=== PATIENT | female | born 1970 | race Hispanic/Latino ===

== ENCOUNTER 2019-02-01 11:35 | Inpatient (IN) | payer OTHER ==
[~2019-02-01] VITALS: Ht 152.4 cm; Wt 113.4 kg
[2019-02-01] MEDS ORDERED: ASPIRIN 81 MG CHEW TAB PO ONE (11:45)
--- NOTE | 2019-02-01 12:10 | Diagnostic Imaging Report ---
EXAMINATION: Head CT HISTORY: Headache, weakness, left side COMPARISON: None. TECHNIQUE: Multidetector axial images were obtained without contrast from the foramen magnum to the vertex . The images were reconstructed using brain and bone algorithms. Thin section brain images were reformatted into coronal and sagittal planes. Image quality: Motion/streaking artifact limits the evaluation of the skull base and posterior cranial fossa. Dose modulation, iterative reconstruction, and/or weight based adjustment of the mA/kV was utilized to reduce the radiation dose to as low as reasonably achievable. FINDINGS: Parenchyma: 1. Tiny hypodense focus in the right posterior lentiform nucleus may represent sequela from remote insult, such as ischemia in the appropriate clinical setting, correlation with past medical history advised. 2. No mass or hemorrhage. No CT evidence of acute territorial vascular insult. Extra-axial spaces:No abnormal density. No extra-axial fluid collections Brain volume: Normal for age. Ventricles: No hydrocephalus or displacement. Arteries: No density suggestive of thrombus. Dural sinuses: No abnormal density. Extra-axial spaces: No abnormal density. Foramen magnum: No mass, Chiari malformation, or basilar invagination. Sella: No obvious mass. Paranasal/mastoid sinuses: Imaged portions unremarkable. Skull/Scalp: No lytic or blastic lesions. No fractures. IMPRESSION: 1. No acute intracranial hemorrhage or CT evidence of acute territorial cortical infarct. 2. Small likely chronic lacunar infarct in the right posterior lentiform nucleus. Signed by: Dr. Mary Almonte M.D. on 02/01/2019 12:07 PM
--- NOTE | 2019-02-01 12:56 | Diagnostic Imaging Report ---
A single frontal view of the chest. HISTORY: Chest pain, possible stroke COMPARISON: None available. DISCUSSION: Portable technique, limits sensitivity of the exam. Soft tissue attenuation partially limits sensitivity of the exam. Tubes/Lines: None Lungs and pleura: Low lung volumes result in bibasilar vascular crowding, accentuation of the pulmonary interstitial markings, central pulmonary vasculature, and the cardiac silhouette. Allowing for these limitations, the findings are as follows: Mild bibasilar atelectasis. No evidence of a consolidative pneumonia or pulmonary alveolar edema. No definite pleural effusion or pneumothorax is identified. Heart and mediastinum: The cardiomediastinal silhouette appear(s) unremarkable. Bones and soft tissues: Appear unremarkable, given this limited exam. IMPRESSION: 1. Mild bibasilar atelectasis. 2. No consolidative pneumonia. Signed by: Dr. Leo Carmen D.O., M.M.M. on 02/01/2019 12:53 PM
[2019-02-01] MEDS ORDERED: HYDRALAZINE HCL 20 MG/ML VIAL IV STA (12:58)
[2019-02-01] MEDS ORDERED: SODIUM CHLORIDE 0.9% 1000ML 1,000 ML IV SCH (13:00)
[2019-02-01 13:06] LABS: BASOPHILS % 0.5 % (0.0-1.0); BILIRUBIN,URINE NEGATIVE (NEGATIVE); CLARITY,URINE SL CLOUDY (CLEAR); COLOR,URINE YELLOW (YELLOW); EOSINOPHILS # (AUTO) 0.3 (0.0-0.4); EOSINOPHILS % 3.9 % (0.0-6.0); HEMATOCRIT 48.1 % (34.2-44.1); HEMOGLOBIN 16.6 g/dL (12.0-16.0); KETONES,URINE TRACE (NEGATIVE); LEUKOCYTE ESTERASE ,URINE NEGATIVE (NEGATIVE); LYMPHOCYTES # (AUTO) 2.1 (1.0-3.2); LYMPHOCYTES % 26.3 % (18.0-39.1); MEAN CORPUSCULAR HEMOGLOBIN 29.3 pg (28-32); MEAN CORPUSCULAR HGB CONC 34.5 g/dL (31-35); MONOCYTES # (AUTO) 0.5 (0.2-0.8); MONOCYTES % 6.1 % (4.4-11.3); NEUTROPHILS % 62.8 % (38.7-80.0); NITRITE,URINE NEGATIVE (NEGATIVE); PLATELET COUNT 388 x10e3/uL (140-360); PROTEIN,URINE DIPSTICK 1+ (NEGATIVE); RED BLOOD COUNT 5.66 x10e6/uL (3.6-5.1); RED CELL DISTRIBUTION WIDTH 12.7 % (11.7-14.4); URINE UROBILINOGEN 0.2 mg/dL (0.2 - 1)
[2019-02-01 13:11] LABS: BACTERIA,URINE FEW /HPF; EPITHELIAL CELLS,URINE FEW /LPF; RBC,URINE 0-5 /HPF (0-5)
[2019-02-01 13:15] LABS: INR 0.91; PROTHROMBIN TIME 12.7 seconds (11.9-14.5)
[2019-02-01 13:16] LABS: PARTIAL THROMBOPLASTIN TIME 26.4 seconds (23.8-35.5)
[2019-02-01 13:29] LABS: ALANINE AMINOTRANSFERASE 27 IU/L (0-55); ALBUMIN 3.6 g/dL (3.5-5.0); ALBUMIN/GLOBULIN RATIO 0.9 (0.8-2.0); ALKALINE PHOSPHATASE 89 IU/L (40-150); ANION GAP 15.1 mmol/L (8-16); BLOOD UREA NITROGEN 9 mg/dL (7-26); BUN/CREATININE RATIO 12 (6-25); CALCIUM 9.2 mg/dL (8.4-10.2); CARBON DIOXIDE 23 mmol/L (22-29); CHLORIDE 103 mmol/L (98-107); CREATINE KINASE 58 IU/L (29-168); CREATININE, SERUM 0.78 mg/dL (0.57-1.11); EST GLOMERULAR FILTRATION RATE > 60 ML/MIN (60-); GLUCOSE 319 mg/dL (74-118); POTASSIUM 4.1 mmol/L (3.5-5.1); SODIUM 137 mmol/L (136-145)
[2019-02-01] MEDS ORDERED: ACETAMINOPHEN 325 MG TAB PO ONE (13:30)
--- OUTSIDE RECORDS SUMMARY | 2019-02-01 13:34 | XMS REPORT ---
Author Author [facility] Address Unknown Phone Unavailable Care Team Providers Care Linen Controller Name Role Phone DULCE POTTER Unavailable Unavailable Problems This patient has no known problems. Allergies, Adverse Reactions, Alerts This patient has no known allergies or adverse reactions. Medications This patient has no known medications. Results Test Description Test Time Test Comments Text Results Atomic Results Result Comments CHEST SINGLE (PORTABLE) 2019-02-01 12:52:00 [place] [address] Patient Name: NORMA FRAUSTO MR #: [id number] : 1970 Age/Sex: 49/F Req #: [id number] Adm Physician: Ordered by: DULCE POTTER DO Report #: [id number] Location: ER Room/Bed: Procedure: [id number] DX/CHEST SINGLE (PORTABLE) Exam Date: 02/01/19 Exam Time: 1140 REPORT STATUS: Signed A single frontal view of the chest. HISTORY: Ch est pain, possible stroke COMPARISON: None available. DISCUSSION: Portable technique, limits sensitivity of the exam. Soft tissue attenuation partially limits sensitivity of the exam. Tubes/Lines: None Lungs and pleura: Low lung volumes result in bibasilar vascular crowding, accentuation of the pulmonary interstitial markings, central pulmonary vasculature, and the cardiac silhouette. Allowing for these limitations, the findings are as follows: Mild bibasilar atelectasis. No evidence of a consolidative pneumonia or pulmonary alveolar edema. No definite pleural effusion or pneumothorax is identified. Heart and mediastinum: The cardiomediastinal silhouette appear(s) unremarkable. Bones and soft tissues: Appear unremarkable, given this limited exam. IMPRESSION: 1. Mild bibasilar atelectasis. 2. No consolidative pneumonia. Signed by: Dr. Isaiah Carmen D.O., M.M.M. on 02/01/2019 12:53 PM Dictated By: ISAIAH CARMEN DO 1253 Transcribed By: NATASHA on 02/01/19 1253 COPY TO: DULCE POTTER DO CT BRAIN WO 2019-02-01 12:03:00 [place] [address] Patient Name: NORMA FRAUSTO MR #: [id number] : 1970 Age/Sex: 49/F Req #: [id number] Adm Physician: Ordered by: DULCE POTTER DO Report #: [id number] Location: ER Room/Bed: Procedure: [id number] CT/CT BRAIN WO Exam Date: 02/01/19 Exam Time: 1140 REPORT STATUS: Signed EXAMINATION: Head CT HISTORY: Headache, weakness, left side COMPARISON: None. TECHNIQUE: Multidetector axial images were obtained without contrast from the foramen magnum to the vertex . The images were reconstructed using brain and bone algorithms. Thin section brain images were reformatted into coronal and sagittal planes. Image quality: Motion/streaking artifact limits the evaluation of the skull base and posterior cranial fossa. Dose modulation, iterative reconstruction, and/or weight based adjustment of the mA/kV was utilized to reduce the radiation dose to as low as reasonably achievable. FINDINGS: Parenchyma: 1. Tiny hypodense focus in the right posterior lentiform nucleus may represent sequela from remote insult, such as ischemia in the appropriate clinical setting, correlation with past medical history advised. 2. No mass or hemorrhage. No CT evidence of acute territorial vascular insult. Extra-axial spaces:No abnormal density. No extra-axial fluid collections Brain volume: Normal for age. Ventricles: No hydrocephalus or displacement. Arteries: No density suggestive of thrombus. Dural sinuses: No abnormal density. Extra-axial spaces: No abnormal density. Foramen magnum: No mass, Chiari malformation, or basilar invagination. Sella: No obvious mass. Paranasal/mastoid sinuses: Imaged portions unremarkable. Skull/Scalp: No lytic or blastic lesions. No fractures. IMPRESSION: 1. No acute intracranial hemorrhage or CT evidence of acute territorial cortical infarct. 2. Small likely chronic lacunar infarct in the right posterior lentiform nucleus. Signed by: Dr. Marzena Almonte M.D. on 02/01/2019 12:07 PM Dictated By: MARZENA ALMONTE MD 1200 Transcribed By: NATASHA on 02/01/19 1209 COPY TO: DULCE POTTER DO
[2019-02-01] MEDS ORDERED: MORPHINE SULFATE 5 MG/ML VIAL IV PRN (14:00)
[2019-02-01] MEDS ORDERED: ONDANSETRON HCL INJ 2MG/ML 2ML 2 MG/ML VIAL IV PRN (14:00)
[2019-02-01] MEDS ORDERED: ACETAMINOPHEN 325 MG TAB PO PRN (14:00)
[2019-02-01] MEDS ORDERED: HYDROCODONE/APAP 5MG-325MG TAB PO PRN (14:00)
--- NOTE | 2019-02-01 14:13 | NUR ---
per dr randi gieger if pt bp sys [id number]
[2019-02-01] MEDS ORDERED: MORPHINE SULFATE 2 MG/ML SYR 1ML IV PRN (14:15)
--- NOTE | 2019-02-01 14:20 | NUR ---
dr mobley at pt bedside
[2019-02-01] MEDS ORDERED: DEXTROSE 50% SYRINGE 50 ML IV PRN (14:45)
[2019-02-01] MEDS ORDERED: ASPIRIN 81 MG CHEW TAB PO STA (14:45)
[2019-02-01] MEDS: SODIUM CHLORIDE 0.9% 1000ML 1,000 ML IV SCH (14:57)
--- NOTE | 2019-02-01 15:03 | NUR ---
per radiology barium swallow study will be done tomorrow
[2019-02-01 15:16] LABS: CHOL/HDL RATIO 5.7 (3.0-3.6)
[2019-02-01] MEDS: LISINOPRIL 10 MG TAB PO SCH (16:36)
--- NOTE | 2019-02-01 19:26 | NUR ---
WALKING ROUNDS PERFORMED, RECEIVED PT LAYING SEMI FOWLERS IN BED, AAOX3, RR EVEN AND NON-LABORED, ON ROOM AIR. (L) ARM NOTED TO BE WEAK WITH (L) TONGUE DEVIATION. LEFT PT LAYING SEMI FOWLERS IN BED, BED IN LOW LOCKED POSITION, SIDE RAILS UPX2, CALL LIGHT AND PHONE WITHIN REACH.
[2019-02-01 20:15] VITALS: BP 172/89
[2019-02-01] MEDS ORDERED: ATORVASTATIN 20 MG TAB PO SCH (21:00)
[2019-02-01] MEDS ORDERED: ATORVASTATIN 40 MG TAB PO SCH (21:00)
[2019-02-01 22:30] VITALS: BP 172/89
--- NOTE | 2019-02-01 23:19 | History and Physical ---
CHIEF COMPLAINT: Left upper and lower extremity weakness that began yesterday afternoon with slurred speech. 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 The patient states that she was at home and suddenly noticed that she had difficulty grabbing things with her left arm and hand. Also noticed that she had difficulty ambulating with her left leg as well. She also noticed slurred speech, but no facial drooping. No blurry vision noted. She reports right side upper and lower extremity are normal with no issues. She does endorse that she has been very noncompliant, was seen a primary care physician due to insurance issues. She also reports that her blood pressure is extremely elevated due to not having any medications at home. The patient was seen and evaluated at bedside on the medical floor in the ER. She is currently doing well with no other issues at this time. REVIEW OF SYSTEMS: 1. She has slurred speech, left upper and lower extremity weakness. 2. Pertinent negatives: Denies any chest pain, palpitation, nausea, vomiting, diarrhea, dysuria, hematuria, frequency, urgency, lightheadedness, dizziness, abdominal pain, headache, shortness of breath, cough, congestion, fever, or any other complaints. The rest of the 14-point review of systems have been reviewed with the patient and are negative. ALLERGIES: NO KNOWN DRUG ALLERGIES. HOME MEDICATIONS: None recorded at this time. PAST MEDICAL HISTORY: Type 2 diabetes, hypertension, morbidly obese. PAST SURGICAL HISTORY: Reports none. FAMILY HISTORY: Hypertension, diabetes. SOCIAL HISTORY: No drugs. No alcohol. Does not smoke. Good social support. She is . PHYSICAL EXAMINATION: VITAL SIGNS: Temperature is 99.4, pulse is 110, respiratory rate is 16, blood pressure is 139/97, pulse ox 99% on room air. When she came in, highest pressure was 127/103. GENERAL: Not in acute distress. Alert and oriented x3. Cooperative on examination. HEENT: Head is normocephalic, atraumatic. Eyes; pupils equal, round, and reactive to light bilaterally. Extraocular movements are intact bilaterally. NECK: Supple. Good range of motion. THROAT: No evidence of erythema or exudates in the posterior pharynx. Has poor dentition. PULMONARY: Clear to auscultation bilaterally. No wheezing, rales, or rhonchi. No crackles appreciated. CARDIOVASCULAR: Positive S1, S2. No murmurs, rubs, or gallops appreciated. ABDOMEN: Soft, nondistended, nontender to palpation. Bowel sounds present. NEUROLOGICAL: Has left upper and lower extremity weakness, difficulty grabbing things with the left hand. Has slurred speech on exam. No facial drooping. Right upper and lower extremities, strength is within normal range. SKIN: Intact. Warm to touch. Good cap refill. PSYCHIATRIC: Normal affect and mood. EXTREMITIES: No edema, good range of motion throughout. LAB FINDINGS: Show white count 7.9, hemoglobin 16.6, hematocrit is 48, platelets of 388, coagulation PT 12, INR 0.91, PTT 26. Chemistry; sodium 137, potassium 4.1, chloride 103, bicarb 23, anion gap of 15, BUN 9, creatinine 0.78. Glucose was 319, calcium 9.2, , AST 17, ALT 27, alk phos 89, CK 58. Troponins are negative. BNP 23, total protein 7.7, albumin 3.6. Urinalysis 6-10 wbcs. Leukocyte esterase negative, nitrite negative. IMAGING STUDIES: Chest x-ray, mild bibasilar atelectasis. No consolidative CT of the brain, no acute intracranial hemorrhage or CT evidence of acute nucleus. IMPRESSION: 1. Concern for acute CVA with left upper or lower extremity weakness. 2. Type 2 diabetes, uncontrolled. 3. Hypertension, uncontrolled. 4. Medical noncompliance. 5. Morbidly obese. PLAN: At this time, aspirin was given in the ER. We will continue with aspirin 81 mg daily. Start on Lipitor 40 mg at bedtime. Get an MRI of the brain, carotid ultrasound, 2D echo, and Neurology consultation. PT/OT evaluation. Get an A1c, lipid panel as well. Monitor blood pressure very closely. Add on low-dose losartan 50 mg daily, add insulin sliding scale as well for diabetes. Diabetic diet. SCDs for DVT prophylaxis for now until MRI of the brain is back. Continue with PT and OT. I discussed the plan of care with the patient and the patient's at bedside including the nursing staff present. She verbalized understanding and agrees to plan of care. MD CLAIRE Kat/MODL /[id number]
[2019-02-01] MEDS ORDERED: BENAZEPRIL-HCT1 EAC3 PO (23:56)
[2019-02-01] MEDS ORDERED: GLIPIZIDE5 MG PO (23:56)
[2019-02-01] MEDS ORDERED: METFORMIN HCL500 MG PO (23:56)
[2019-02-02] VITALS (8 sets, daily range): BP systolic 144–195; BP diastolic 72–111
[2019-02-02] MEDS: SODIUM CHLORIDE 0.9% 1000ML 1,000 ML IV SCH ×2 (03:41→17:49)
[2019-02-02 05:56] LABS: BASOPHILS % 0.3 % (0.0-1.0); EOSINOPHILS # (AUTO) 0.3 (0.0-0.4); EOSINOPHILS % 3.4 % (0.0-6.0); HEMATOCRIT 43.9 % (34.2-44.1); HEMOGLOBIN 14.7 g/dL (12.0-16.0); LYMPHOCYTES # (AUTO) 3.6 (1.0-3.2); LYMPHOCYTES % 40.6 % (18.0-39.1); MEAN CORPUSCULAR HEMOGLOBIN 29.1 pg (28-32); MEAN CORPUSCULAR HGB CONC 33.5 g/dL (31-35); MEAN CORPUSCULAR VOLUME 86.9 fL (81-99); MONOCYTES # (AUTO) 0.7 (0.2-0.8); MONOCYTES % 8.2 % (4.4-11.3); NEUTROPHILS # (AUTO) 4.1 (2.1-6.9); NEUTROPHILS % 46.7 % (38.7-80.0); PLATELET COUNT 337 x10e3/uL (140-360); RED BLOOD COUNT 5.05 x10e6/uL (3.6-5.1)
[2019-02-02] MEDS ORDERED: INFLUENZA VIRUS VAC SPLIT INJ 0.5 ML SYR IM SCH (06:00)
[2019-02-02] MEDS ORDERED: PNEUMOCOCCAL VACCINE POLYVALENT 23 MCG/0.5 ML VIAL IM SCH (06:00)
[2019-02-02 06:17] LABS: ANION GAP 12.5 mmol/L (8-16); BLOOD UREA NITROGEN 10 mg/dL (7-26); BUN/CREATININE RATIO 14 (6-25); CALCIUM 8.5 mg/dL (8.4-10.2); CARBON DIOXIDE 24 mmol/L (22-29); CHLORIDE 101 mmol/L (98-107); CHOL/HDL RATIO 6.1 (3.0-3.6); CHOLESTEROL 200 MD/DL (0-199); CREATININE, SERUM 0.71 mg/dL (0.57-1.11); EST GLOMERULAR FILTRATION RATE > 60 ML/MIN (60-); GLUCOSE 239 mg/dL (74-118); HDL CHOLESTEROL 33 MG/DL (40-60); LDL CHOLESTEROL 143 MG/DL (60-130); POTASSIUM 3.5 mmol/L (3.5-5.1); SODIUM 134 mmol/L (136-145); TRIGLYCERIDES 118 MG/DL (0-149)
[2019-02-02] MEDS ORDERED: DEXTROSE 50% SYRINGE 50 ML IV PRN (06:30)
[2019-02-02] MEDS: INSULIN REGULAR, HUMAN 100 UNIT/1 ML 3ML VIAL SQ SCH ×4 (07:56→20:39)
[2019-02-02] MEDS: LISINOPRIL 10 MG TAB PO SCH ×2 (07:56→18:07)
[2019-02-02] MEDS: ASPIRIN 81 MG CHEW TAB PO SCH (07:56)
[2019-02-02] MEDS ORDERED: ASPIRIN 325 MG TAB PO SCH (09:00)
--- NOTE | 2019-02-02 10:00 | NUR ---
DC INSTRUCTIONS AND PRESCRIPTIONS GIVEN PT VERBALIZED,UNDERSTANDING IV DC PRESSURE DRESSING APPLIED AND TAPED PT IS NOW OFF UNIT TO HOME Addendum: 02/02/19 at 1003 by Angie Traylor RN WRONG PT CHARTING
--- NOTE | 2019-02-02 12:31 | Progress Note ---
DATE: 02/02/2019 Medicine Progress Note SUBJECTIVE: The patient states that her slurred speech has improved. She passed her speech therapy evaluation. She is able to eat regular diet. She reports feeling a little better today, but still kind of wobbly when she is ambulating. PHYSICAL EXAMINATION: VITAL SIGNS: Temperature is 97.6, pulse 80, respiratory rate is 20, blood pressure is 144/91, and pulse ox 97% on room air. GENERAL: Not in acute distress. Alert and oriented x3. Cooperative on examination. HEENT: Head; normocephalic, atraumatic. Eyes; pupils are equal, round, and reactive to light bilaterally. Extraocular movements intact bilaterally. Throat; no evidence of erythema or exudates in the posterior pharynx. Has poor dentition. NECK: Supple. Good range of motion. PULMONARY: Clear to auscultation bilaterally. No wheezing, no rales, no rhonchi, no crackles appreciated. CARDIOVASCULAR: Positive S1 and S2. No murmurs, rubs, or gallops appreciated. ABDOMEN: Soft, nondistended, and nontender to palpation. Bowel sounds present. MUSCULOSKELETAL: We will defer to Neurology. NEUROLOGIC: She has weakness in the left upper and lower extremity, difficulty grabbing with the left hand, but she reports much improved compared to yesterday. Her slurred speech improved. We will defer the exam to Neurology. SKIN: Intact. Warm to touch. Good cap refill. PSYCHIATRIC: Normal affect and mood. EXTREMITIES: No edema. Good range of motion throughout. LABORATORY DATA: Labs show white count 8.7, hemoglobin 14.7, hematocrit is 44, and platelets of 337. Chemistries reviewed show sodium 134, potassium 3.5, chloride 101, bicarb 24, anion gap of 12, BUN is 10, creatinine is 0.71, glucose 239. A1c is 11.7, calcium 8.5, albumin 3.6, LDL was 143. MICROBIOLOGY: None. IMAGING DATA: Carotid Doppler ultrasound pending. MRI of the brain pending. A 2D echo pending. IMPRESSION: 1. Acute cerebrovascular accident with left upper and lower extremity weakness. 2. Type 2 diabetes, uncontrolled. 3. Hypertension. 4. Morbid obesity. 5. Medical noncompliance. PLAN: At this time, continue with aspirin. Also, continue with Lipitor due to LDL being very high. We are still pending MRI of the brain, carotid ultrasound, and 2D echo. Neurology is consulted, who will come and evaluate. PT/OT has been consulted in hopes to determine if the patient needs inpatient rehab versus skilled versus some other form of rehab. I will go ahead and start her on insulin for her diabetes, as her A1c is significantly high. We will go ahead and discontinue oral anti-glycemics, add her on Levemir 10 units at bedtime with premeal and NovoLog at 5 units as well as sliding scale. We will continue to monitor her very closely. Her blood pressure is stable. Discussed plan of care with the patient and nursing staff. MD CLAIRE Kat/KEVEN /[id number]
--- NOTE | 2019-02-02 14:14 | NUR ---
SPOKE WITH MD BEYER REGARDING HIGH BP NEW ORDERS RECEIVED
[2019-02-02] MEDS ORDERED: LOSARTAN POTASSIUM 100 MG TAB PO SCH (14:15)
--- NOTE | 2019-02-02 15:17 | Diagnostic Imaging Report ---
History: CVA Comparison studies: CT head 02/01/2019 Technique: Sagittal T2; axial DWI, FLAIR, MPGR, T1, Coronal FLAIR. Intravenous contrast: None Findings: Scalp: Normal in signal . No masses . Bone marrow: Normal in signal intensity. Extra-axial: No masses, no fluid collections. Brain sulci: Appropriate for age. Ventricles: Normal in size . No hydrocephalus . Parenchyma: Right central leticia restricted diffusion with associated T2/FLAIR hyperintensity measuring approximately 1.0 cm in transverse diameter. Small T-2/flair hyperintensities of the periventricular and deep white matter. Small chronic lacunar infarct at the right posterior lentiform nucleus. No masses or hemorrhage. Suprasellar region: No abnormalities. Craniocervical junction: No abnormalities. Patent foramen magnum. No Chiari one malformation. Vessels: Normal flow-voids in the arteries and sinuses. IMPRESSION: 1. Right central leticia acute infarct. No intracranial hemorrhage. 2. Mild chronic microvascular ischemic changes of the white matter The above finding was reported and acknowledged by Dr. Rdz at 3:34 PM 02/02/2019 Signed by: DR Black Sanchez M.D. on 02/02/2019 3:26 PM
[2019-02-02] MEDS: INSULIN LISPRO 100 UNIT/1 ML 3ML VIAL SQ SCH (17:22)
[2019-02-02] MEDS: ENOXAPARIN SOD INJ 40 MG/0.4 ML SYR SC SCH (20:29)
[2019-02-02] MEDS: ATORVASTATIN 40 MG TAB PO SCH (20:32)
[2019-02-02] MEDS: INSULIN GLARGINE 100 UNITS/ML VIAL SQ SCH (20:39)
[2019-02-02] MEDS ORDERED: LISINOPRIL 10 MG TAB PO ONE (20:45)
--- NOTE | 2019-02-02 20:46 | NUR ---
CALLED AND SPOKE WITH DR BEYER NOTIFIED PT'S ELEVATED BLOOD PRESSURE,NEW ORDERS RECEIVED AND ENTERED.
[2019-02-03] VITALS (9 sets, daily range): BP systolic 133–173; BP diastolic 65–93
--- NOTE | 2019-02-03 02:40 | Consultation ---
DATE OF CONSULTATION: 02/02/2019 Neurology Consult Note HISTORY OF PRESENT ILLNESS: Ms. Du is a 49-year-old right-hand dominant woman with past medical history significant for hypertension, diabetes mellitus type 2, and morbid obesity (not compliant with treatment), admitted to [facility] on February 01, 2019, with symptoms suspicious for a stroke. On January 31, 2019, between 1300 and 1400, Ms. Du experienced the sudden onset of dysarthria and left hemiparesis affecting the face, arm, and leg. Ms. Du does not report other symptoms associated with the dysarthria and left hemiparesis. Specifically, she does not report a visual field cut or other disturbance, aphasia, hemihypesthesia, poor balance, impairment of gait, dizziness, confusion, or headache. Over the next 24 hours (approximately), Ms. Du's neurological deficits slightly worsened. Therefore, she presented to the emergency center at [facility] between 0930 and 1030 on February 01, 2019, for further evaluation of her symptoms. Upon arrival in the emergency center, the patient was afebrile with a blood pressure of 187/86 mmHg and a pulse of 114 beats per minute. Her neurological examination was significant for mild left hemiparesis, with pronator drift and cerebellar dysfunction. While in the emergency center, a CT of the brain without contrast was performed. This study did not reveal evidence of recent large territorial ischemia or hemorrhage. Ms. Du was subsequently admitted to [facility] for further evaluation and treatment of her symptoms. Ms. Du does not take an antiplatelet or anticoagulant medication on a routine basis at home. Ms. Du reports taking her antihypertensive and oral hypoglycemic medicines inconsistently. REVIEW OF SYSTEMS: Nasal congestion, dysarthria, left facial weakness, weakness of the left arm and leg. Otherwise, a 12-point review of systems is negative. PAST MEDICAL HISTORY: Hypertension, diabetes mellitus type 2, morbid obesity (not compliant with treatment). PAST SURGICAL HISTORY: D and C in 2003, section in 2004. PAST HOSPITALIZATIONS: Surgeries/procedures as listed. FAMILY MEDICAL HISTORY: Hypertension, diabetes mellitus, and coronary artery disease in multiple paternal relatives. Hypertension in multiple maternal relatives. SOCIAL HISTORY: Ms. Du is . 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 Ms. Du does not report current or prior tobacco, alcohol, or recreational drug use. HOME MEDICATIONS: Benazepril/hydrochlorothiazide 20-25 mg one tablet by mouth daily, metformin 500 mg by mouth twice daily, and glipizide 5 mg by mouth twice daily. HOSPITAL MEDICATIONS: Acetaminophen, Lipitor, hydrocodone/acetaminophen, influenza virus vaccine, insulin glargine, Humalog, Humulin R, lisinopril, morphine sulfate, Zofran, and pneumococcal polyvalent vaccine. ALLERGIES: NO KNOWN DRUG ALLERGIES. NO KNOWN FOOD ALLERGIES. NO KNOWN ALLERGIES TO LATEX. NO KNOWN ALLERGIES TO IODINE OR OTHER CONTRAST MATERIALS. PHYSICAL EXAMINATION: VITAL SIGNS: Height 60 inches, weight 250 pounds, BMI 48.8 kg/m2, blood pressure 165/74 mmHg, pulse 98 beats per minute, respiratory rate 20 breaths per minute, and oxygen saturation 98% on room air. GENERAL: The patient is awake and alert, does not appear distressed. Morbidly obese. HEENT: Normocephalic, atraumatic. Pupils are equal, round, and reactive to light. Moist mucous membranes. NECK: Supple. No appreciable thyromegaly. No appreciable carotid bruits. CARDIOVASCULAR: S1, S2, regular rate and rhythm. No murmurs, rubs, or gallops. RESPIRATORY: Clear to auscultation bilaterally. No wheezes, rhonchi, or rales. EXTREMITIES: The skin is warm and dry. No clubbing, cyanosis, or edema. The posterior tibial and dorsalis pedis pulses are 2+ and symmetric. SKIN: No rashes or lesions. NEUROLOGIC: Memory/Attention: The patient is awake and alert, oriented to person, place, time, and situation. Cranial Nerves: Cranial nerve I - not tested. Cranial nerve II, III, IV, and - pupils are equal and round, react briskly to light (from 4 mm to 2 mm). Extraocular movements intact. No nystagmus. Cranial nerve V - sensation to light touch and pinprick is intact in the bilateral V1 through V3 distributions. Strength in the temporalis and masseter muscles is within normal limits. Cranial nerve VII - the face is asymmetric on the left as are all facial movements. Mild left central facial weakness is appreciated. Cranial nerve VIII - hearing is intact to finger rub bilaterally. Cranial nerve IX, X - the soft palate elevates equally and symmetrically. Cranial nerve XI - normal strength of the bilateral sternocleidomastoid and trapezius muscles. Cranial nerve XII - the tongue protrudes slightly to the left, but moves symmetrically from [id number]. Strength: Bulk is normal. Strength is 5/5 in the right deltoid, triceps, biceps, brachioradialis, wrist flexors and extensors, finger flexors and extensors, intrinsic hand muscles, hip flexors, knee flexors and extensors, ankle dorsiflexion and plantar flexion, and intrinsic foot muscles. Tone is normal in the right arm and right leg. Strength is 4-/5 in the left arm flexors and 3+/5 in the left arm extensors. Strength is 4/5 in the left leg flexors and 4+/5 in the left leg extensors. Tone is mildly decreased in the left arm and left leg. DTRs: Deep tendon reflexes are 2+ at the right triceps, biceps, brachioradialis, and patella. Deep tendon reflexes are 3+ at the left triceps, biceps, brachioradialis, and patella. Deep tendon reflexes are trace and symmetric at the Achilles. Plantar responses are flexor on the right and extensor on the left. Sensation: Sensation is intact to light touch and pinprick in both arms and both legs. Cerebellar: [id number] and heel-matias movements are impaired on the left, but within the bounds of paresis. Gait: Deferred. Speech: Spontaneous speech is mildly dysarthric without aphasia. Repetition is intact. Involuntary movements: None. Pronator Drift: Positive in the left arm and left leg. LABORATORY DATA: The most recent basic metabolic panel is significant for an elevated serum glucose of 239. A liver function panel collected on February 01, 2019, was unremarkable. Cardiac enzymes are negative x1. B-natriuretic peptide 23.1. Total cholesterol 235, triglycerides 126, LDL cholesterol 169, HDL cholesterol 41. Hemoglobin A1c 11.7. The CBC with differential and platelets is unremarkable. The coagulation profile is within normal limits. Urinalysis reveals slightly cloudy urine with 1+ protein, trace ketones, 6-10 white blood cells, few urine bacteria, and few urine epithelial cells. DIAGNOSTIC STUDIES: Electrocardiogram 02/01/2019: Sinus tachycardia at 107 beats per minute. Chest x-ray 02/01/2019: Mild bibasilar atelectasis. No consolidative pneumonia. CT of the brain without contrast 02/01/2019: On my review, there is no evidence of recent large territorial ischemia, hemorrhage, mass, or mass effect. A chronic lacunar infarct is seen in the right posterior lentiform nucleus. Cerebral volumes are appropriate for age. There are findings compatible with mild chronic small- vessel ischemic disease. Echocardiogram 02/02/2019: Ejection fraction 55%. No significant valvular abnormalities are noted. Bilateral carotid artery ultrasound with Doppler 02/02/2019: There is no atherosclerosis in either carotid artery system. Flow is antegrade in the bilateral vertebral arteries. MRI of the brain on 02/02/2019: There is an acute ischemic stroke in the right central leticia. A remote lacunar infarct is seen in the right posterior lentiform nucleus. Cerebral volumes are appropriate for age. There are scattered T2/FLAIR hyperintense foci throughout the supratentorial white matter compatible with mild chronic small vessel ischemic disease. ASSESSMENT AND PLAN: Ms. Du is a 49-year-old right-hand dominant woman with multiple vascular risk factors, not compliant with treatment, admitted to [facility] on February 01, 2019, with a right pontine stroke with residual dysarthria and left hemiparesis. On neurological examination, the patient has mild left hemiparesis affecting the face, arm, and leg, impaired cerebellar function of the left arm and left leg within the bounds of paresis, and mild dysarthria. The patient's laboratory data and other diagnostic studies have been reviewed and are documented above. Ms. Du has completed stroke evaluation. RECOMMENDATIONS: Are as follows: 1. Treatment with aspirin 81 mg by mouth daily for stroke prophylaxis will be continued. 2. The patient is 48 hours status post stroke. Her blood pressure may be gradually normalized. The patient's goal blood pressure is less than 140/90 mmHg within the next 1-2 days. 3. The patient's goal total cholesterol is less than 200 with an LDL of less than 70. Treatment with atorvastatin will be continued, but the dose will be increased to 80 mg by mouth at bedtime daily. Recheck a lipid panel in 8 weeks. 4. The patient's goal hemoglobin A1c is less than 7.0. Ms. Du's hemoglobin A1c is 11.7. Continue treatment with sliding scale insulin per unit protocol. While hospitalized, tight glycemic control is recommended. Defer treatment to the primary and other services following the patient. 5. Ms. Du has been evaluated by Speech and Physical therapies. Speech therapy recommended a regular diet with thin liquids. Physical therapy is recommending inpatient rehabilitation. A case management consult has been placed. 6. GI prophylaxis with Pepcid 20 mg by mouth twice daily with meals. DVT prophylaxis with Lovenox 40 mg subcutaneously daily. 7. Defer treatment of the remaining medical comorbidities to the primary and other services following the patient. 8. Anticipated disposition: Inpatient rehabilitation within 48 to 72 hours. Thank you for this consultation. I will continue to follow the patient while she remains in the hospital. TIME SPENT: 50 minutes. Mariluz Ayala MD CP/KEVEN /[id number] MTDD
[2019-02-03] MEDS: SODIUM CHLORIDE 0.9% 1000ML 1,000 ML IV SCH (06:45)
--- NOTE | 2019-02-03 06:58 | NUR ---
REPORT GIVEN TO ONCOMING NURSE.WALKING ROUNDS MADE.PT RESTING IN BED WITH NO S/S OF DISTRESS.
[2019-02-03] MEDS: FAMOTIDINE 20 MG TAB PO SCH ×2 (08:31→16:39)
[2019-02-03] MEDS: ASPIRIN 81 MG CHEW TAB PO SCH (08:32)
[2019-02-03] MEDS: LISINOPRIL 20 MG TAB PO SCH ×2 (08:32→16:39)
[2019-02-03] MEDS: INSULIN REGULAR, HUMAN 100 UNIT/1 ML 3ML VIAL SQ SCH ×4 (08:35→19:55)
[2019-02-03] MEDS: INSULIN LISPRO 100 UNIT/1 ML 3ML VIAL SQ SCH ×3 (08:35→16:40)
[2019-02-03] MEDS ORDERED: LISINOPRIL 10 MG TAB PO SCH (09:00)
--- NOTE | 2019-02-03 09:07 | NUR ---
SPOKE WITH MD CARR REGARDING NEW CONSULT. NOW AWARE
--- NOTE | 2019-02-03 09:40 | NUR ---
ST Note: Attempted to see pt for f/u after bedside swallow eval. pt in restroom. will return later time permitting.
--- NOTE | 2019-02-03 11:09 | NUR ---
ORDERS REC'D FOR ACUTE REHAB EVAL CHOICE LETTER SIGNED FOR [facility] BY PT CHOICE LETTER ON CHART MOT INITIATED AND PLACED IN PACKET AT DESK DR CARR CONSULTED NOTIFIED MONA ALMARAZ WITH [facility] OF CONSULT CLINICALS FAXED TO [phone] CONFIRMATION REC'D PLAN: TRANSFER TO [facility] WHEN APPROVED BY INSURANCE
[2019-02-03] MEDS ORDERED: ONDANSETRON HCL 4 MG ORAL DISINTEGRATING TAB PO PRN (12:30)
[2019-02-03] MEDS: CYCLOBENZAPRINE HCL 10 MG TAB PO PRN ×2 (12:47→21:36)
--- NOTE | 2019-02-03 14:40 | NUR ---
Visit made by the Spiritual Care Department Pastoral Visitor, Jenniffer Arrington. PV provided pastoral presence, prayer, hospitality, and supportive listening. Pastoral Visitor informed pt/family of the scope of [facility] and availability. TATY GUDINO Ux Specialist Spiritual Care Department O: [phone] Pager: [phone] ([phone] number calling from)
--- NOTE | 2019-02-03 15:34 | Progress Note ---
DATE: 02/03/2019 Medicine Progress Note SUBJECTIVE: The patient reportedly states she is feeling a little better. She is working with physical therapy. We are work on inpatient rehab for the patient. PHYSICAL EXAMINATION: VITAL SIGNS: Temperature is 98.7, pulse 80, respiratory rate is 20, blood pressure 140/91, and pulse ox 95% on room air. GENERAL: Not in acute distress. Alert and oriented x3. Cooperative on examination. HEENT: Head; normocephalic, atraumatic. Eyes; pupils are equal, round, and reactive to light bilaterally. Extraocular movements are intact bilaterally. Throat; no evidence of erythema or exudates in the posterior pharynx. Has poor dentition. NECK: Supple. Good range of motion. PULMONARY: Clear to auscultation bilaterally. No wheezing, no rales, no rhonchi, no crackles appreciated. CARDIOVASCULAR: Positive S1 and S2. No murmurs, rubs, or gallops appreciated. ABDOMEN: Soft, nondistended, and nontender to palpation. Bowel sounds present. MUSCULOSKELETAL: Strength is 5/5 throughout. No evidence of any muscle deficits on examination. No weakness appreciated. Please defer to Neurology. NEUROLOGIC: Cranial nerve 2 through 12 grossly intact. No evidence of any neurological deficits on exam. Please defer to Neurology. SKIN: Intact. Warm to touch. Good cap refill. PSYCHIATRIC: Normal affect and mood. EXTREMITIES: No edema. Good range of motion throughout. LABORATORY DATA: Lab findings show white count of 8.7, hemoglobin 14.2, hematocrit is 43, platelets of 337. Chemistries are stable. MICROBIOLOGY: None. IMAGING DATA: MRI of the brain showed evidence of a right central leticia acute infarct. No intracranial hemorrhage. There is no evidence of any hemodynamically significant stenosis in the left or right internal carotid arteries. A 2D echo still pending final results. IMPRESSION: 1. Acute cerebrovascular accident with right pontine infarct. 2. Type 2 diabetes, uncontrolled. 3. Hypertension. 4. Morbid obesity. 5. Medical noncompliance. PLAN: At this time, she reports moving her left upper and lower extremity, much improved, but has some spasms which I will go ahead and add Flexeril p.r.n. MRI of the brain already noted as well as carotid ultrasound. Still waiting on a 2D echo results as well. Neurology evaluated the patient. We also consulted with Physical Medicine Rehab, Dr. Carlos, to come evaluate her for inpatient rehab. I feel like the patient will benefit truly from inpatient rehab considering her age and debilitation that occurred with this particular stroke. At this time, we will continue with same plan of care and monitor very closely. We will continue with Levemir and premeal insulin as well. Her glucose levels are better controlled at 148. MD CLAIRE Kat/KEVEN /[id number]
[2019-02-03] MEDS: ENOXAPARIN SOD INJ 40 MG/0.4 ML SYR SC SCH (16:39)
--- NOTE | 2019-02-03 19:00 | NUR ---
RECEIVED PATIENT IN BEDSIDE REPORT. PATIENT RESTING AT THIS TIME. NO PAIN REPORTED. NO S&S OF DISTRESS NOTED. L FA 20G RUNNING NS @ 75 ML/HR, ASYMPTOMATIC, INTACT, AND PATENT. BED LOCKED IN LOWEST POSITION, SIDE RAILS UPX2, CALL LIGHT IN REACH.
--- NOTE | 2019-02-03 20:01 | Consultation ---
DATE OF CONSULTATION: 02/03/2019 I would like to thank Dr. Rdz for asking me see Ms. Du in consultation. REASON FOR CONSULTATION: 1. Status post right pontine stroke with left-sided hemiparesis, upper extremity more affected than lower extremity. 2. Obesity. 3. Diabetes. 4. Hypertension. 5. Noncompliance with medications. HISTORY: A 49-year-old Latin female, who is right-hand dominant, who back in January 31, symptoms associated with dysarthria and left-sided hemiparesis. The patient over the next 24 hours started to have some slightly worsening symptoms and then decided to come to the emergency room here at [facility] The patient had hypertension and was tachycardic at that time, CT of the brain was negative. However, MRI done later showed right central pontine infarct as well as mild chronic microvascular ischemic changes of the white matter, was seen by Dr. Mariluz Ayala, and workup was initiated and has since been completed, she is now up to the point where she could benefit from being evaluated for inpatient rehab. PAST MEDICAL HISTORY: Hypertension, diabetes, morbid obesity. She does not have a physician and is basically not too compliant with her medications. PAST SURGICAL HISTORY: Include D and C in 2003, in 2004. FAMILY HISTORY: Hypertension, diabetes, coronary artery disease run in the family. SOCIAL HISTORY: Lives with her family in one-story home, was otherwise independent. Works as a computer aided design technician. Denies a walker or cane. One step to get into the house. ALLERGIES: NO KNOWN DRUG ALLERGIES OR FOOD ALLERGIES. HABITS: Denies. REVIEW OF SYSTEMS: 11-point review of systems as the patient is essentially negative except for the above findings. LABORATORY DATA: The patient had a white cell count of 8.7, hemoglobin of 14.7, hematocrit 43.9, and platelets of 337. INR 0.91. UA; essentially negative for urinary tract infection. Rehab linder, the patient is ambulatory, does have impaired gait and mobility. However, did walk 150 feet, requiring some assistance. PHYSICAL EXAMINATION: GENERAL: The patient is awake, alert, and oriented x3. 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 Eyes; gaze conjugate, extraocular muscles are intact, no visual field deficits at this time. NEUROLOGIC: Sensory linder; denies any numbness or tingling in the hands, feet, or face. Manual muscle testing; 5/5 strength in the right arm and right leg throughout. In left upper extremity, she has some shoulder shrug, elbow flexion is 3+/5 strength as a synergistic pattern. She has 1/5 strength with wrist flexion extension, 0/5 strength with finger movement. In the left lower extremity, hip flexion extension was 3-/5 strength within the sitting position, knee flexion extension is 3-/5 strength in ankle dorsiflexion, plantar flexion 0/5 strength. Patellar DTRs are 2+/4+ on the right and 1+/4+ on the left. IMPRESSION: 1. Status post right pontine cerebrovascular accident with left-sided hemiparesis, upper extremity more affected than lower extremity. 2. Diabetes. 3. Hypertension. 4. Morbid obesity. PLAN: The patient is definitely a good benefit from multidisciplinary inpatient rehab program, consisting of PT, OT, nursing, and speech working in coordinate fashion to optimize her functional level. I have also spoken with the patient at length, will need to have a primary care physician, who can help her maintain her medications and her overall health, so that she has decreased risk for stroke in the future. Discussed with patient and family at length checking with insurance to see of they will allow her to come in inpatient rehab. Thank you once again for allowing me to participate in the care of this pleasant patient. Thomas Carlos DO RPL/MODL /[id number]
[2019-02-03] MEDS: ATORVASTATIN 40 MG TAB PO SCH (20:41)
[2019-02-03] MEDS: INSULIN GLARGINE 100 UNITS/ML VIAL SQ SCH (20:57)
--- NOTE | 2019-02-03 21:44 | NUR ---
PATIENT REQUESTING SOMETHING TO HELP HER SLEEP, SPOKE WITH MD BEYER, NEW ORDERS RECEIVED.
[2019-02-03] MEDS: MELATONIN 5 MG TABLET PO PRN (22:04)
[2019-02-04] VITALS (7 sets, daily range): BP systolic 141–185; BP diastolic 76–91
[2019-02-04] MEDS: SODIUM CHLORIDE 0.9% 1000ML 1,000 ML IV SCH ×2 (00:39→09:25)
--- NOTE | 2019-02-04 07:22 | NUR ---
Received patient lying in bed with eyes open. Respiration even and unlabored without SOB. Call light in reach.
[2019-02-04] MEDS: INSULIN REGULAR, HUMAN 100 UNIT/1 ML 3ML VIAL SQ SCH ×4 (07:30→20:59)
[2019-02-04] MEDS: ASPIRIN 81 MG CHEW TAB PO SCH (08:20)
[2019-02-04] MEDS: FAMOTIDINE 20 MG TAB PO SCH ×2 (08:20→16:19)
[2019-02-04] MEDS: LISINOPRIL 20 MG TAB PO SCH ×2 (08:21→16:19)
[2019-02-04] MEDS: INSULIN LISPRO 100 UNIT/1 ML 3ML VIAL SQ SCH ×3 (09:42→18:18)
--- NOTE | 2019-02-04 12:30 | NUR ---
Nurse called to room and noticed patient on her knees with tech at her side. Tech informed nurse that her left leg gave out and patient was lowered down. Patient was stable and fine. No s/s of distress noted. Patient assisted back up to her feet and assisted back to her bed. Bedside commode to bedside. Call placed to therapy for the walker and left arm support d/t flaccidity. Unable to find the arm support. Will keep gait belt at bedside and patient to be assisted by 2 staff members.
--- NOTE | 2019-02-04 14:35 | Progress Note ---
DATE: Medicine Progress Note SUBJECTIVE: The patient reports doing much better today. Has no other issues. She does feel like she is more sleepy today than usual. She did get some melatonin last night for sleep. PHYSICAL EXAMINATION: VITAL SIGNS: Temperature is 96.5, pulse 74, respiratory rate is 20, last blood pressure early this morning 185/85, but she has been stable before. She did receive her lisinopril, but the new vital signs are not available at this time after the lisinopril. GENERAL: Not in acute distress. Alert and oriented x3. Cooperative on examination. HEENT: Head; normocephalic, atraumatic. Eyes; pupils are equal, round, and reactive to light bilaterally. Extraocular movements intact bilaterally. Throat; no evidence of erythema or exudates in the posterior pharynx. Has poor dentition. NECK: Supple. Good range of motion. PULMONARY: Clear to auscultation bilaterally. No wheezing, no rales, no rhonchi, no crackles appreciated. CARDIOVASCULAR: Positive S1 and S2. No murmurs, rubs, or gallops appreciated. ABDOMEN: Soft, nondistended, and nontender to palpation. Bowel sounds present. MUSCULOSKELETAL: Defer to Neurology. NEUROLOGIC: I will defer that to Neurology. SKIN: Intact. Warm to touch. Good cap refill. PSYCHIATRIC: Normal affect and mood. EXTREMITIES: No edema. Good range of motion throughout. LABORATORY DATA: Labs were reviewed. IMPRESSION: 1. Acute cerebrovascular accident with right pontine infarct. 2. Type 2 diabetes, uncontrolled. 3. Hypertension. 4. Morbid obesity. 5. Medical noncompliance. PLAN: At this time, she is improving daily. Work with PT and OT. Continue with aspirin and statin. MRI and carotid ultrasound noted. Neurology is following. Dr. Carlos from rehab is also seeing the patient. He is scheduling her hopefully for inpatient rehab to see if she can get insurance approval. She would truly benefit from inpatient rehab due to her debilitation. Otherwise, we will continue with same plan of care. Monitor closely. Discussed with nursing staff. Mj labs. MD CLAIRE Kat/KEVEN /[id number]
[2019-02-04] MEDS: ENOXAPARIN SOD INJ 40 MG/0.4 ML SYR SC SCH (16:19)
[2019-02-04] MEDS: AMLODIPINE BESYLATE 5 MG TAB PO SCH (18:01)
--- NOTE | 2019-02-04 19:16 | NUR ---
Report given to faceter. Respiration even and unlabored without SOB. Call light in reach.
--- NOTE | 2019-02-04 19:27 | NUR ---
Received report from previous nurse. Call light within reach. at bedside. Patient in bed.
[2019-02-04] MEDS: INSULIN GLARGINE 100 UNITS/ML VIAL SQ SCH (21:03)
[2019-02-04] MEDS: ATORVASTATIN 40 MG TAB PO SCH (21:05)
[2019-02-04] MEDS: MELATONIN 5 MG TABLET PO PRN (21:13)
[2019-02-04] MEDS: CYCLOBENZAPRINE HCL 10 MG TAB PO PRN (21:19)
[2019-02-05] VITALS (9 sets, daily range): BP systolic 134–167; BP diastolic 77–92
[2019-02-05 06:00] LABS: BASOPHILS % 0.2 % (0.0-1.0); EOSINOPHILS # (AUTO) 0.1 (0.0-0.4); EOSINOPHILS % 1.1 % (0.0-6.0); HEMATOCRIT 42.3 % (34.2-44.1); HEMOGLOBIN 14.4 g/dL (12.0-16.0); LYMPHOCYTES # (AUTO) 2.8 (1.0-3.2); LYMPHOCYTES % 29.6 % (18.0-39.1); MEAN CORPUSCULAR HEMOGLOBIN 29.6 pg (28-32); MEAN CORPUSCULAR VOLUME 86.9 fL (81-99); MONOCYTES # (AUTO) 0.6 (0.2-0.8); MONOCYTES % 5.9 % (4.4-11.3); NEUTROPHILS # (AUTO) 5.9 (2.1-6.9); NEUTROPHILS % 63.1 % (38.7-80.0); PLATELET COUNT 329 x10e3/uL (140-360); RED BLOOD COUNT 4.87 x10e6/uL (3.6-5.1); RED CELL DISTRIBUTION WIDTH 12.7 % (11.7-14.4)
[2019-02-05 06:17] LABS: ANION GAP 12.1 mmol/L (8-16); BLOOD UREA NITROGEN 12 mg/dL (7-26); BUN/CREATININE RATIO 19 (6-25); CARBON DIOXIDE 27 mmol/L (22-29); CHLORIDE 103 mmol/L (98-107); CREATININE, SERUM 0.64 mg/dL (0.57-1.11); EST GLOMERULAR FILTRATION RATE > 60 ML/MIN (60-); GLUCOSE 133 mg/dL (74-118); POTASSIUM 4.1 mmol/L (3.5-5.1); SODIUM 138 mmol/L (136-145)
--- NOTE | 2019-02-05 07:21 | NUR ---
Patient in bed. Call light within reach. Gave report to oncoming nurse. at bedside
[2019-02-05] MEDS: INSULIN REGULAR, HUMAN 100 UNIT/1 ML 3ML VIAL SQ SCH ×4 (08:00→21:14)
[2019-02-05] MEDS: INSULIN LISPRO 100 UNIT/1 ML 3ML VIAL SQ SCH ×3 (08:00→17:15)
[2019-02-05] MEDS: FAMOTIDINE 20 MG TAB PO SCH ×2 (08:50→17:15)
[2019-02-05] MEDS: AMLODIPINE BESYLATE 5 MG TAB PO SCH (09:30)
[2019-02-05] MEDS: ASPIRIN 81 MG CHEW TAB PO SCH (09:30)
[2019-02-05] MEDS: LISINOPRIL 20 MG TAB PO SCH ×2 (09:30→17:15)
--- NOTE | 2019-02-05 09:37 | NUR ---
AMBULATING IN HALLWAY WITH PHYSICAL THERAPIST, FAMILY AT SIDE
--- NOTE | 2019-02-05 11:40 | Progress Note ---
DATE: 02/05/2019 Medicine Progress Note SUBJECTIVE: The patient is doing well today with no other complaints. She was sitting in a chair at the side of the bed, had no other issues at this time. We are awaiting for inpatient rehab acceptance. PHYSICAL EXAMINATION: VITAL SIGNS: Temperature is 97.6, pulse 66, respiratory rate 16, blood pressure 140/80, pulse ox 98% on room air. GENERAL: Not in acute distress. Alert and oriented x3. Cooperative on examination. HEENT: Head; normocephalic, atraumatic. Eyes; pupils are equal, round, and reactive to light bilaterally. Extraocular movements are intact bilaterally. Throat; no evidence of erythema or exudates in the posterior pharynx. Has poor dentition. NECK: Supple. Good range of motion. PULMONARY: Clear to auscultation bilaterally. No wheezing, no rales, no rhonchi, no crackles appreciated. CARDIOVASCULAR: Positive S1 and S2. No murmurs, rubs, or gallops appreciated. ABDOMEN: Soft, nondistended, and nontender to palpation. Bowel sounds present. MUSCULOSKELETAL: We will defer to Neurology. NEUROLOGIC: We will defer to Neurology. SKIN: Intact. Warm to touch. Good cap refill. PSYCHIATRIC: Normal affect and mood. EXTREMITIES: No edema appreciated. LABORATORY DATA: Lab findings show white count 9.3, hemoglobin 14, hematocrit 42, platelets of 329. Coagulation PT 12, INR 0.91, PTT 26. Chemistry; sodium 138, potassium 4.1, chloride 103, bicarb 27, anion gap of 12, BUN is 12, creatinine is 0.64, glucose is 133, calcium is 9. MICROBIOLOGY: None. IMAGING STUDIES: Nothing new. IMPRESSION: 1. Acute cerebrovascular accident with right pontine infarct. 2. Type 2 diabetes, uncontrolled, elevated A1c. 3. Hypertension, uncontrolled. 4. Morbid obesity. 5. Medical noncompliance. PLAN: At this time, she continues to work with PT and OT. She is on aspirin and statin and being followed by Neurology. We are waiting on inpatient rehab acceptance and which Dr. Carlos is following closely. Her glucose is better controlled. Continue with Levemir as well as insulin sliding scale. Her blood pressure is improved as well. We will continue with the same antihypertensive medications. At this time, we will continue with same plan of care till she is accepted to inpatient rehab. Once accepted, she will be discharged. I explained the plan of care with the patient, patient's and nursing staff at bedside. MD CLAIRE Kat/KEVEN /[id number]
[2019-02-05] MEDS: CYCLOBENZAPRINE HCL 10 MG TAB PO PRN ×2 (15:30→22:04)
[2019-02-05] MEDS: ENOXAPARIN SOD INJ 40 MG/0.4 ML SYR SC SCH (17:15)
--- NOTE | 2019-02-05 19:07 | NUR ---
Received report from previous nurse. Call light within reach. Patient in bed. Family at bedside
[2019-02-05] MEDS: INSULIN GLARGINE 100 UNITS/ML VIAL SQ SCH (21:15)
[2019-02-05] MEDS: ATORVASTATIN 40 MG TAB PO SCH (21:15)
[2019-02-05] MEDS: MELATONIN 5 MG TABLET PO PRN (22:04)
[2019-02-06] VITALS: BP 135/74
[2019-02-06 04:00] VITALS: BP 128/79
--- NOTE | 2019-02-06 07:10 | NUR ---
Gave report to oncoming nurse. Call light within reach. Patient in bed. at bedside
[2019-02-06] MEDS: FAMOTIDINE 20 MG TAB PO SCH ×2 (07:59→16:54)
[2019-02-06] MEDS: INSULIN LISPRO 100 UNIT/1 ML 3ML VIAL SQ SCH ×3 (08:00→16:55)
[2019-02-06] MEDS: INSULIN REGULAR, HUMAN 100 UNIT/1 ML 3ML VIAL SQ SCH ×3 (08:03→16:55)
[2019-02-06 08:54] VITALS: BP 143/79
[2019-02-06] MEDS: LISINOPRIL 20 MG TAB PO SCH ×2 (09:00→16:54)
[2019-02-06] MEDS: AMLODIPINE BESYLATE 5 MG TAB PO SCH (09:00)
[2019-02-06] MEDS: ASPIRIN 81 MG CHEW TAB PO SCH (09:00)
[2019-02-06 10:38] VITALS: BP 143/79
[2019-02-06 12:00] VITALS: BP 142/85
--- NOTE | 2019-02-06 14:12 | Progress Note ---
DATE: 02/06/2019 Medicine Progress Note SUBJECTIVE: The patient states doing very well today with no other complaints. She is awaiting patiently for inpatient rehab acceptance. PHYSICAL EXAMINATION: VITAL SIGNS: Temperature 97.2, pulse 80, respiratory rate is 20, blood pressure 143/79, pulse ox 96% on room air. GENERAL: Not in acute distress. Alert and oriented x3. Cooperative on exam. HEENT: Head; normocephalic and atraumatic. Eyes; pupils are equal, round and reactive to light bilaterally. Extraocular movements are intact bilaterally. Throat; no evidence of erythema or exudates in the posterior pharynx. Has poor dentition. NECK: Supple. Good range of motion throughout. PULMONARY: Clear to auscultation bilaterally. No wheezing, no rales, no rhonchi. No crackles appreciated. CARDIOVASCULAR: Positive S1 and S2. No murmurs, rubs, or gallops appreciated. ABDOMEN: Soft, nondistended, and nontender to palpation. Bowel sounds present. MUSCULOSKELETAL: Defer to Neurology. NEUROLOGICAL: Defer to Neurology. SKIN: Intact. Warm to touch. Good cap refill. PSYCHIATRIC: Normal affect and mood. EXTREMITIES: No edema. Good range of motion throughout. LABORATORY DATA: Show white count 9.3, hemoglobin 14, hematocrit 42, platelets of 329. Coagulation; PT 12, INR 0.91, PTT 26. Chemistry reviewed and stable. MICROBIOLOGY: None. IMAGING STUDIES: No new imaging studies. IMPRESSION: 1. Acute cerebrovascular accident with right pontine infarct. 2. Type 2 diabetes, uncontrolled, elevated A1c. 3. Hypertension, uncontrolled. 4. Morbid obesity. 5. Medical noncompliance. PLAN: At this time, continue working with Physical therapy and Occupational therapy. Continue with aspirin, statin, being followed by Neurology. We are awaiting patiently for inpatient rehab acceptance. Physical Medicine rehab has also been following. Continue with Lantus insulin sliding scale. Continue with the same antihypertensive medications. Once accepted, the patient can be discharged to inpatient rehab. I explained the plan of care with the patient, patient's , and the nursing staff at bedside. MD CLAIRE Kat/KEVEN /[id number]
[2019-02-06 16:08] VITALS: BP 134/68
[2019-02-06] MEDS: ENOXAPARIN SOD INJ 40 MG/0.4 ML SYR SC SCH (16:54)
--- NOTE | 2019-02-06 17:02 | NUR ---
REC'D AUTH FROM [facility] AT [facility] DC ORDERS SECURED PT GOING TO [facility] [phone] RM [id number] PT AND NURSE NOTIFIED MOT TO NURSE RODRIGUEZ
--- NOTE | 2019-02-06 17:48 | NUR ---
report called to [facility]. awaiting transportation at this time.
--- NOTE | 2019-02-06 19:30 | NUR ---
Report received. Ambulance arrived at 1920 to transfer patient to [facility]. Family is present at bedside. IV removed without complications. Tele box removed. Pt denies any pain. Belongings gathered and with family. Patient leaving unit at this time.
--- NOTE | 2019-02-07 17:33 | Discharge Summary ---
FINAL DISCHARGE DIAGNOSES: 1. Acute cerebrovascular accident with right pontine infarct. 2. Type 2 diabetes, uncontrolled. 3. Hypertension, uncontrolled. 4. Morbid obesity. 5. Medical noncompliance. CONSULTANTS: Physical Medicine Rehab and Neurology. PHYSICAL EXAMINATION: VITAL SIGNS: Temperature is 97.6, pulse 75, respiratory rate is 20, blood pressure 134/68, and pulse ox 96% on room air. LABORATORY FINDINGS: Show white count is 9.3, hemoglobin 14, hematocrit is 42, and platelets of 329. Coagulation; PT 12, INR 0.91, and PTT 26. Chemistry; sodium was 138, potassium was 4.1, chloride was 103, bicarbonate was 27, anion gap of 12, BUN was 12, and creatinine was 0.64. Hemoglobin A1c 11.7. LFTs were normal. Troponins were negative. LDL cholesterol was 143. Albumin was 3.6. Urinalysis negative. IMAGING STUDIES: Chest x-ray negative. CT brain, no acute intracranial hemorrhage or CT evidence of acute tentorial cortical infarct. Small likely chronic lacunar infarct in the right posterior lentiform nucleus. Carotid Doppler within normal range. No evidence of any stenosis. Brain MRI, right central pontine acute infarct. No intracranial hemorrhage. Mild chronic microvascular ischemic changes of the white matter. HOSPITAL COURSE: This is a 49-year-old female, morbidly obese with uncontrolled type 2 diabetes and hypertension, comes into the emergency room with complaints of left-sided weakness and slurred speech. The patient came in for further evaluation and management. The patient reports her symptoms were the day before prior to arrival to the hospital. While here, imaging studies were performed with an MRI found to have a right pontine infarct on MRI of the brain. Carotid ultrasound was found to be negative. A 2D echo was found to be normal. Neurology was consulted. The patient was started on anti-platelet therapy as well as statins. She worked with PT and OT. Physical Medicine Rehab worked with the patient and the patient was eventually discharged to inpatient rehab. She was found to have a hemoglobin A1c of 11.7, started on insulin premeal as well as long-acting insulin. Her blood pressure was well controlled, managed on new antihypertensive medications. Diet and exercise were discussed with the patient at bedside as well. On the day of discharge, vital signs stable, labs reviewed and stable. The patient is seen and evaluated, and examined thoroughly on the day of discharge. No other complaints. The patient verbalized understanding and agrees to plan of care to follow up accordingly as an outpatient with the primary care physician in 1 week and neurologist in 2 weeks' time. MEDICATIONS: See med reconciliation form. DISPOSITION: To [facility] [facility] for inpatient rehab. CONDITION: Stable. DIET: Heart healthy. In the event of any worsening symptoms, the patient advised to come back to the ED for further evaluation. Discharge summary took greater than 35 minutes. MD CLAIRE Kat/KEVEN /[id number]
== END 2019-02-06 19:30 | DRG 65 ==
LOC: ER 11:35 → ERHOLD 13:00 → MED/SURG 18:52
PROVIDERS: ADMIT Internal Medicine; ATTEND Internal Medicine
DX: I63.9 Cerebral infarction, unspecified (principal); Z68.42 Body mass index [BMI] 45.0-49.9, adult; G81.94 Hemiplegia, unspecified affecting left nondominant side; Z91.19 Patient's noncompliance with other medical treatment and regimen; I10 Essential (primary) hypertension; E11.65 Type 2 diabetes mellitus with hyperglycemia; E66.01 Morbid (severe) obesity due to excess calories; Z91.14 Patient's other noncompliance with medication regimen
CPT/HCPCS: 36415; 70450; 70551; 71045; 80048; 80053; 80061; 81001; 82550; 82553; 82948; 83036; 83880; 84484; 85025; 85610; 85730; 90732; 93005; 93306; 93880; 97139; 99284; J0360; J1650; J1815; J1817; J7030

== ENCOUNTER 2022-05-07 09:05 | Inpatient (IN) | payer MEDICARE, OTHER ==
[~2022-05-07] VITALS: Ht 152.4 cm; Wt 113.4 kg
[~2022-05-07 09:05] MED LIST: BENAZEPRIL-HCT1 EAC3 PO; GLIPIZIDE5 MG PO; METFORMIN HCL500 MG PO
[2022-05-07] MEDS ORDERED: METHYLPREDNISOLONE SOD SUCC 125 MG/2ML VIAL IV ONE (09:30)
[2022-05-07] MEDS ORDERED: SODIUM CHLORIDE 0.9% 1000ML 1,000 ML IV SCH (09:30)
[2022-05-07] MEDS: ALBUTEROL/IPRATROPIUM 3 ML NEB NEB ONE ×2 (09:50→11:59)
[2022-05-07 10:00] LABS: BASOPHILS % 0.3 % (0.0-1.0); EOSINOPHILS # (AUTO) 0.2 (0.0-0.4); EOSINOPHILS % 1.7 % (0.0-6.0); HEMATOCRIT 52.6 % (34.2-44.1); HEMOGLOBIN 16.5 g/dL (12.0-16.0); LYMPHOCYTES # (AUTO) 2.7 (1.0-3.2); LYMPHOCYTES % 21.4 % (18.0-39.1); MEAN CORPUSCULAR HEMOGLOBIN 29.7 pg (28-32); MEAN CORPUSCULAR HGB CONC 31.4 g/dL (31-35); MEAN CORPUSCULAR VOLUME 94.6 fL (81-99); MONOCYTES # (AUTO) 0.6 (0.2-0.8); NEUTROPHILS # (AUTO) 8.9 (2.1-6.9); NEUTROPHILS % 71.3 % (38.7-80.0); PLATELET COUNT 437 x10e3/uL (140-360); RED BLOOD COUNT 5.56 x10e6/uL (3.6-5.1); RED CELL DISTRIBUTION WIDTH 13.4 % (11.7-14.4)
[2022-05-07 10:24] LABS: INR 1.04; PROTHROMBIN TIME 13.8 seconds (11.9-14.5)
[2022-05-07 10:25] LABS: PARTIAL THROMBOPLASTIN TIME 28.8 seconds (23.8-35.5)
[2022-05-07 10:26] LABS: ALBUMIN 3.6 g/dL (3.5-5.0); ALBUMIN/GLOBULIN RATIO 0.9 (0.8-2.0); ANION GAP 18.8 mmol/L (8-16); CALCIUM 9.5 mg/dL (8.4-10.2); CREATININE, SERUM 0.87 mg/dL (0.57-1.11); POTASSIUM 4.8 mmol/L (3.5-5.1)
[2022-05-07 10:33] LABS: CREATINE KINASE MB 162.7 ng/mL (0-5.0)
[2022-05-07 10:46] LABS: B-TYPE NATRIURETIC PEPTIDE2 13.6 pg/mL (0-100)
[2022-05-07] MEDS ORDERED: IOPAMIDOL 370 MG/ML 100 ML INFUS..BTL INJ ONE (12:46)
[2022-05-07 14:09] LABS: CLARITY,URINE HAZY (CLEAR); COLOR,URINE YELLOW (YELLOW); LEUKOCYTE ESTERASE ,URINE TRACE (NEGATIVE); NITRITE,URINE POSITIVE (NEGATIVE)
[2022-05-07 14:10] LABS: KETONES,URINE NEGATIVE (NEGATIVE); PROTEIN,URINE DIPSTICK NEGATIVE (NEGATIVE); URINE UROBILINOGEN 0.2 mg/dL (0.2 - 1)
[2022-05-07 14:14] LABS: BACTERIA,URINE MODERATE /HPF; EPITHELIAL CELLS,URINE MANY /LPF; RBC,URINE 21-50 /HPF (0-5)
[2022-05-07] MEDS ORDERED: ONDANSETRON HCL INJ 2MG/ML 2ML 2 MG/ML VIAL IV PRN (14:30)
[2022-05-07] MEDS ORDERED: DEXTROSE 50% SYRINGE 50 ML IV PRN (14:30)
[2022-05-07 17:46] VITALS: BP 139/87
[2022-05-07] MEDS: INSULIN REGULAR, HUMAN 100 UNIT/1 ML SQ SCH ×2 (18:11→21:00)
[2022-05-07] MEDS ORDERED: PAROXETINE HCL10 MG (18:29)
[2022-05-07] MEDS ORDERED: LISINOPRIL5 MG PO (18:29)
[2022-05-07] MEDS ORDERED: NIFEDIPINE10 MG PO (18:29)
[2022-05-07] MEDS ORDERED: ATENOLOL50 MG PO (18:29)
[2022-05-07] MEDS ORDERED: METHOCARBAMOL750 MG PO (18:29)
[2022-05-07] MEDS ORDERED: MELATONIN5 M2 (18:29)
[2022-05-07] MEDS ORDERED: ASPIRIN81 MG PO (18:29)
[2022-05-07] MEDS ORDERED: MELOXICAM7.5 MG PO (18:29)
[2022-05-07] MEDS ORDERED: METFORMIN HCL500 MG PO (18:29)
[2022-05-07] MEDS ORDERED: ATORVASTATIN CA20 MG PO (18:29)
[2022-05-07 18:51] LABS: CREATINE KINASE MB 130.7 ng/mL (0-5.0)
[2022-05-07 20:00] VITALS: BP 132/73
[2022-05-08] VITALS (8 sets, daily range): BP systolic 102–131; BP diastolic 61–76
[2022-05-08 05:38] LABS: BASOPHILS % 0.1 % (0.0-1.0); HEMOGLOBIN 14.4 g/dL (12.0-16.0); LYMPHOCYTES # (AUTO) 1.8 (1.0-3.2); LYMPHOCYTES % 13.1 % (18.0-39.1); MEAN CORPUSCULAR HEMOGLOBIN 29.3 pg (28-32); MEAN CORPUSCULAR HGB CONC 30.6 g/dL (31-35); MEAN CORPUSCULAR VOLUME 95.5 fL (81-99); MONOCYTES # (AUTO) 0.3 (0.2-0.8); MONOCYTES % 2.4 % (4.4-11.3); NEUTROPHILS # (AUTO) 11.7 (2.1-6.9); NEUTROPHILS % 83.9 % (38.7-80.0); PLATELET COUNT 430 x10e3/uL (140-360); RED BLOOD COUNT 4.92 x10e6/uL (3.6-5.1); RED CELL DISTRIBUTION WIDTH 13.6 % (11.7-14.4)
[2022-05-08 06:11] LABS: ALBUMIN 3.4 g/dL (3.5-5.0); ALBUMIN/GLOBULIN RATIO 0.9 (0.8-2.0); ANION GAP 19.2 mmol/L (8-16); CALCIUM 9.1 mg/dL (8.4-10.2); CREATININE, SERUM 0.83 mg/dL (0.57-1.11); POTASSIUM 5.2 mmol/L (3.5-5.1)
[2022-05-08 06:32] LABS: CREATINE KINASE 2016 IU/L (29-168)
[2022-05-08] MEDS: INSULIN REGULAR, HUMAN 100 UNIT/1 ML SQ SCH ×4 (07:30→21:00)
[2022-05-08] MEDS: ACETAMINOPHEN 325 MG TAB PO PRN ×2 (08:38→22:39)
[2022-05-08] MEDS ORDERED: SODIUM CHLORIDE 0.9% 250ML 250 ML ONE (08:50)
[2022-05-08 12:48] LABS: CREATINE KINASE MB 89.2 ng/mL (0-5.0)
[2022-05-08] MEDS: ASPIRIN 81 MG CHEW TAB PO SCH (21:49)
[2022-05-08] MEDS: ATENOLOL 50 MG TAB PO SCH (21:50)
[2022-05-08] MEDS: NIFEDIPINE CR 30 MG TAB PO SCH (21:50)
[2022-05-08] MEDS: ATORVASTATIN 20 MG TAB PO SCH (21:51)
[2022-05-08] MEDS: METHOCARBAMOL 500 MG TAB PO SCH (21:51)
[2022-05-09] VITALS (8 sets, daily range): BP systolic 93–134; BP diastolic 63–84
[2022-05-09 06:17] LABS: BASOPHILS % 0.3 % (0.0-1.0); EOSINOPHILS # (AUTO) 0.1 (0.0-0.4); EOSINOPHILS % 0.4 % (0.0-6.0); HEMATOCRIT 49.6 % (34.2-44.1); HEMOGLOBIN 14.9 g/dL (12.0-16.0); LYMPHOCYTES # (AUTO) 3.9 (1.0-3.2); LYMPHOCYTES % 33.1 % (18.0-39.1); MEAN CORPUSCULAR HEMOGLOBIN 29.7 pg (28-32); MEAN CORPUSCULAR VOLUME 98.8 fL (81-99); MONOCYTES % 8.2 % (4.4-11.3); NEUTROPHILS # (AUTO) 6.8 (2.1-6.9); NEUTROPHILS % 57.7 % (38.7-80.0); PLATELET COUNT 346 x10e3/uL (140-360); RED BLOOD COUNT 5.02 x10e6/uL (3.6-5.1); RED CELL DISTRIBUTION WIDTH 14.2 % (11.7-14.4)
[2022-05-09 06:29] LABS: ALBUMIN 3.2 g/dL (3.5-5.0); ALBUMIN/GLOBULIN RATIO 0.9 (0.8-2.0); ANION GAP 16.8 mmol/L (8-16); CALCIUM 8.8 mg/dL (8.4-10.2); CREATININE, SERUM 0.85 mg/dL (0.57-1.11); POTASSIUM 4.8 mmol/L (3.5-5.1)
[2022-05-09] MEDS: INSULIN REGULAR, HUMAN 100 UNIT/1 ML SQ SCH ×4 (07:24→21:00)
[2022-05-09] MEDS: PAROXETINE HCL 20 MG TAB PO SCH (09:45)
[2022-05-09] MEDS ORDERED: ONDANSETRON HCL 4 MG ORAL DISINTEGRATING TAB PO PRN (11:15)
[2022-05-09] MEDS: ATENOLOL 50 MG TAB PO SCH (20:39)
[2022-05-09] MEDS: ATORVASTATIN 20 MG TAB PO SCH (20:39)
[2022-05-09] MEDS: ASPIRIN 81 MG CHEW TAB PO SCH (20:39)
[2022-05-09] MEDS: NIFEDIPINE CR 30 MG TAB PO SCH (20:40)
[2022-05-09] MEDS: METHOCARBAMOL 500 MG TAB PO SCH (20:40)
[2022-05-10] VITALS (7 sets, daily range): BP systolic 99–137; BP diastolic 61–97
[2022-05-10 05:57] LABS: BASOPHILS % 0.4 % (0.0-1.0); EOSINOPHILS # (AUTO) 0.1 (0.0-0.4); EOSINOPHILS % 0.8 % (0.0-6.0); LYMPHOCYTES # (AUTO) 3.8 (1.0-3.2); LYMPHOCYTES % 36.1 % (18.0-39.1); MEAN CORPUSCULAR HEMOGLOBIN 29.5 pg (28-32); MEAN CORPUSCULAR HGB CONC 31.3 g/dL (31-35); MEAN CORPUSCULAR VOLUME 94.3 fL (81-99); MONOCYTES # (AUTO) 0.9 (0.2-0.8); MONOCYTES % 8.5 % (4.4-11.3); NEUTROPHILS # (AUTO) 5.7 (2.1-6.9); NEUTROPHILS % 53.8 % (38.7-80.0); PLATELET COUNT 347 x10e3/uL (140-360); RED BLOOD COUNT 5.09 x10e6/uL (3.6-5.1); RED CELL DISTRIBUTION WIDTH 14.1 % (11.7-14.4)
[2022-05-10 06:34] LABS: ANION GAP 13.6 mmol/L (8-16); CALCIUM 8.7 mg/dL (8.4-10.2); CREATININE, SERUM 0.89 mg/dL (0.57-1.11); POTASSIUM 4.6 mmol/L (3.5-5.1)
[2022-05-10] MEDS: INSULIN REGULAR, HUMAN 100 UNIT/1 ML SQ SCH ×4 (07:30→21:00)
[2022-05-10] MEDS: PAROXETINE HCL 20 MG TAB PO SCH (09:55)
[2022-05-10] MEDS: METHOCARBAMOL 500 MG TAB PO SCH (21:17)
[2022-05-10] MEDS: ATORVASTATIN 20 MG TAB PO SCH (21:17)
[2022-05-10] MEDS: ASPIRIN 81 MG CHEW TAB PO SCH (21:17)
[2022-05-10] MEDS: ATENOLOL 50 MG TAB PO SCH (21:18)
[2022-05-10] MEDS: NIFEDIPINE CR 30 MG TAB PO SCH (21:23)
[2022-05-11 04:00] VITALS: BP 112/78
[2022-05-11] MEDS: INSULIN REGULAR, HUMAN 100 UNIT/1 ML SQ SCH ×4 (07:30→21:00)
[2022-05-11 08:08] VITALS: BP 98/61
[2022-05-11 08:13] VITALS: BP 98/61
[2022-05-11] MEDS: PAROXETINE HCL 20 MG TAB PO SCH (09:13)
[2022-05-11] MEDS: AZITHROMYCIN 250 MG TAB PO SCH (09:13)
[2022-05-11 16:14] VITALS: BP 127/85
[2022-05-11 19:25] VITALS: BP 115/68
[2022-05-11 20:00] VITALS: BP 115/68
[2022-05-11] MEDS: NIFEDIPINE CR 30 MG TAB PO SCH (21:00)
[2022-05-11] MEDS: ATENOLOL 50 MG TAB PO SCH (21:00)
[2022-05-11] MEDS: ASPIRIN 81 MG CHEW TAB PO SCH (21:53)
[2022-05-11] MEDS: ATORVASTATIN 20 MG TAB PO SCH (21:53)
[2022-05-11] MEDS: METHOCARBAMOL 500 MG TAB PO SCH (21:53)
[2022-05-12] VITALS (7 sets, daily range): BP systolic 93–132; BP diastolic 60–75
[2022-05-12] MEDS: INSULIN REGULAR, HUMAN 100 UNIT/1 ML SQ SCH ×4 (07:28→21:00)
[2022-05-12] MEDS: PAROXETINE HCL 20 MG TAB PO SCH (09:19)
[2022-05-12] MEDS: AZITHROMYCIN 250 MG TAB PO SCH (09:20)
[2022-05-12] MEDS: NIFEDIPINE CR 30 MG TAB PO SCH (21:00)
[2022-05-12] MEDS: METHOCARBAMOL 500 MG TAB PO SCH (21:00)
[2022-05-12] MEDS: ATENOLOL 50 MG TAB PO SCH (21:00)
[2022-05-12] MEDS: ATORVASTATIN 20 MG TAB PO SCH (21:11)
[2022-05-12] MEDS: ASPIRIN 81 MG CHEW TAB PO SCH (21:11)
[2022-05-13] VITALS: BP 141/87
[2022-05-13] MEDS: INSULIN REGULAR, HUMAN 100 UNIT/1 ML SQ SCH ×4 (07:30→21:00)
[2022-05-13 07:49] VITALS: BP 124/77
[2022-05-13 07:51] VITALS: BP 124/77
[2022-05-13] MEDS: PAROXETINE HCL 20 MG TAB PO SCH (08:31)
[2022-05-13] MEDS: AZITHROMYCIN 250 MG TAB PO SCH (10:16)
[2022-05-13 12:13] VITALS: BP 142/93
[2022-05-13 16:23] VITALS: BP 140/76
[2022-05-13 20:00] VITALS: BP 137/80
[2022-05-13] MEDS: ATENOLOL 50 MG TAB PO SCH (21:24)
[2022-05-13] MEDS: METHOCARBAMOL 500 MG TAB PO SCH (21:24)
[2022-05-13] MEDS: ASPIRIN 81 MG CHEW TAB PO SCH (21:24)
[2022-05-13] MEDS: ATORVASTATIN 20 MG TAB PO SCH (21:24)
[2022-05-13] MEDS: NIFEDIPINE CR 30 MG TAB PO SCH (21:25)
[2022-05-14] VITALS (10 sets, daily range): BP systolic 106–137; BP diastolic 63–89
[2022-05-14] MEDS: INSULIN REGULAR, HUMAN 100 UNIT/1 ML SQ SCH ×4 (07:30→21:00)
[2022-05-14] MEDS: PAROXETINE HCL 20 MG TAB PO SCH (08:59)
[2022-05-14] MEDS: AZITHROMYCIN 250 MG TAB PO SCH (09:00)
[2022-05-14] MEDS ORDERED: SODIUM CHLORIDE 0.9% 1000ML 1,000 ML ONE (09:04)
[2022-05-14] MEDS: ASPIRIN 81 MG CHEW TAB PO SCH (20:58)
[2022-05-14] MEDS: ATENOLOL 50 MG TAB PO SCH (20:59)
[2022-05-14] MEDS: NIFEDIPINE CR 30 MG TAB PO SCH (21:00)
[2022-05-14] MEDS: METHOCARBAMOL 500 MG TAB PO SCH (21:00)
[2022-05-14] MEDS: ATORVASTATIN 20 MG TAB PO SCH (21:00)
[2022-05-15] VITALS: BP 149/83
[2022-05-15 04:00] VITALS: BP 103/72
[2022-05-15 05:41] LABS: BASOPHILS % 0.4 % (0.0-1.0); EOSINOPHILS # (AUTO) 0.3 (0.0-0.4); EOSINOPHILS % 3.4 % (0.0-6.0); HEMATOCRIT 46.4 % (34.2-44.1); HEMOGLOBIN 14.9 g/dL (12.0-16.0); MEAN CORPUSCULAR HEMOGLOBIN 29.6 pg (28-32); MEAN CORPUSCULAR HGB CONC 32.1 g/dL (31-35); MEAN CORPUSCULAR VOLUME 92.2 fL (81-99); MONOCYTES # (AUTO) 0.8 (0.2-0.8); MONOCYTES % 7.7 % (4.4-11.3); NEUTROPHILS # (AUTO) 5.6 (2.1-6.9); NEUTROPHILS % 57.2 % (38.7-80.0); PLATELET COUNT 338 x10e3/uL (140-360); RED BLOOD COUNT 5.03 x10e6/uL (3.6-5.1); RED CELL DISTRIBUTION WIDTH 13.7 % (11.7-14.4)
[2022-05-15 06:00] LABS: ANION GAP 15.4 mmol/L (8-16); CALCIUM 9.2 mg/dL (8.4-10.2); CREATININE, SERUM 0.67 mg/dL (0.57-1.11); POTASSIUM 4.4 mmol/L (3.5-5.1)
[2022-05-15] MEDS: INSULIN REGULAR, HUMAN 100 UNIT/1 ML SQ SCH ×2 (07:30→11:30)
[2022-05-15 08:07] VITALS: BP 118/85
[2022-05-15 08:08] VITALS: BP 118/85
[2022-05-15] MEDS: PAROXETINE HCL 20 MG TAB PO SCH (09:09)
[2022-05-15] MEDS: AZITHROMYCIN 250 MG TAB PO SCH (11:48)
[2022-05-15 12:31] VITALS: BP 114/80
[2022-05-15] MEDS ORDERED: tessalon perles PO (13:15)
[2022-05-15] MEDS ORDERED: PROAIR RESPICL90 MCG INH (13:16)
== END 2022-05-15 14:20 | disposition home health service (06) | DRG 871 ==
LOC: ER 09:10 → ERHOLD 14:33 → MED/SURG3 16:45
PROVIDERS: ADMIT Internal Medicine; ATTEND Internal Medicine
DX: A41.9 Sepsis, unspecified organism (principal); J18.9 Pneumonia, unspecified organism; I69.354 Hemiplegia and hemiparesis following cerebral infarction affecting left non-dominant side; Z68.42 Body mass index [BMI] 45.0-49.9, adult; N17.9 Acute kidney failure, unspecified; E87.20 Acidosis, unspecified; N39.0 Urinary tract infection, site not specified; R09.02 Hypoxemia; E66.01 Morbid (severe) obesity due to excess calories; E11.9 Type 2 diabetes mellitus without complications; I10 Essential (primary) hypertension; R13.12 Dysphagia, oropharyngeal phase; E86.0 Dehydration
CPT/HCPCS: 36415; 51700; 71045; 71260; 74230; 80048; 80053; 81001; 82550; 82553; 82948; 83605; 83880; 84484; 85025; 85610; 85730; 87040; 87086; 93005; 94799; 99252; 99284; J0456; J0696; J1817; J2930; J7030; J7050; Q9967